=== PATIENT | female | born 2000 | race African-American/Black ===

== ENCOUNTER 2022-05-11 21:14 | Emergency (ER) | payer BC, SELFPAY ==
--- NOTE | ~2022-05-11 | CT_ITS ---
EXAMINATION: CT cervical spine wo con DATE: 05/11/2022 21:28 INDICATION: Head injury post 6 foot fall from a pull up bar. TECHNIQUE: Computed tomography (CT) of the cervical spine was performed without intravenous contrast. Automated exposure control and iterative reconstruction technique were employed. The dose-length pro duct was 530.74 mGy-cm. COMPARISON: None FINDINGS: Straightening of the normal cervical lordosis likely related to the presence of a cervical collar. No spondylolisthesis or facet subluxation. Vertebral body heights are normal. No fracture. Disc heights are normal. Uncovertebral joints are normal. 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 No centra l canal or neural foraminal stenosis. Bilateral small seventh cervical ribs. Cervical soft tissues ar e unremarkable. Visualized apices of lungs are clear. IMPRESSION: 1. No acute osseous abnormality. 2. 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 Reviewed, dictated and finalized at location A.
--- NOTE | ~2022-05-11 | CT_ITS ---
EXAMINATION: CT brain wo con DATE: 05/11/2022 21:28 INDICATION: Head injury post 6 foot fall from pull-up bar TECHNIQUE: Computed tomography (CT) of the head was performed without intravenous contrast. Sagittal and coronal reconstructions were performed. The mA was adjusted according to patient size. Iterative reconstruction technique was employed. The dose-length product was 605.33 mGy-cm. COMPARISON: None FINDINGS: No fracture. No acute intracranial hemorrhage, acute infarction or abnormal extra axial fluid collect ion. Ventricles are normal and symmetric. No mass/mass effect. The orbits, paranasal sinuses and mast oid air cells are normal. IMPRESSION: 1. Normal brain. No fracture or acute intracranial process. Reviewed, dictated and finalized at location A.
--- NOTE | 2022-05-11 21:14 | ED.HEATRA ---
HPI - Head Injury General Chief complaint: Head Injury <HAZEL Scruggs Last Filed: 05/12/22 00:54> Stated complaint: HEAD INJURY/ 6 FT FALL <HAZEL Scruggs Last Filed: 05/12/22 00:54> Source: patient and EMS <HAZEL Scruggs Last Filed: 05/12/22 00:54> Mode of arrival: EMS <HAZEL Scruggs Last Filed: 05/12/22 00:54> Limitations: no limitations <HAZEL Scruggs Last Filed: 05/12/22 00:54> History of Present Illness HPI Narrative: Patient is a 21-year-old female who presents the ED via EMS with report of head injury. Patient reports she was at [facility] when her teammates were doing pull-ups on a pull-up bar. She was lifted up to the pull-up bar and was attempting to perform a pull-up when she sort of jumped off the bar and hit her head against the wall that was in front of the bar. She then fell backwards onto the ground. Her teammates did not report loss of consciousness with the initial head injury, but reported that she had a syncopal episode after the fall. She was also complaining of dizziness, vision changes, nausea. EMS was then called. Patient reports having a slight headache currently, but denies any other pain. No further nausea, dizziness, vision changes. No back pain, neck pain, chest pain, difficulty breathing. <HAZEL Scruggs Last Filed: 05/12/22 00:54> Review of Systems Review of Systems: CONSTITUTIONAL: Denies fever, chills, or sweats. EYES: Denies visual changes. CARDIOVASCULAR: Denies chest pain. RESPIRATORY: Denies dyspnea. GASTROINTESTINAL: Denies abdominal pain, nausea, vomiting, or diarrhea. MUSCULOSKELETAL: Denies back pain, neck pain. NEUROLOGIC: Reports head injury, syncope, headache. Denies dizziness, lightheadedness, numbness, or weakness. <HAZEL Scruggs Last Filed: 05/12/22 00:54> All systems reviewed & are unremarkable except as noted in HPI and below <Shireen Umana PA-C - Last Filed: 05/12/22 00:54> [facility] Past Medical History Medical History: Medical History (Updated 05/12/22 @ 00:49 by Shireen Umana PA-C) No pertinent past medical history <Shireen Umana PA-C - Last Filed: 05/12/22 00:54> Surgical History Surgical History: Surgical History (Updated 05/12/22 @ 00:49 by Shireen Umana PA-C) No pertinent past surgical history <Shireen Umana PA-C - Last Filed: 05/12/22 00:54> Social History Social History: Social History (Updated 05/12/22 @ 00:49 by Shireen Umana PA-C) Smoking status: Never smoker <Shireen Umana PA-C - Last Filed: 05/12/22 00:54> Exam Narrative: GENERAL: Well appearing, morbidly obese, non-toxic, in no acute distress. HEAD: Normocephalic. Small tender contusion to R forehead. No wounds. EYES: PERRL/EOMI, conjunctivae clear bilaterally. No nystagmus. THROAT: Pharynx clear, no exudate. MMs moist. NECK: Supple. No adenopathy, no masses. C-collar in place. No midline spinal tenderness or appreciable paraspinal muscle tenderness. Full range of motion. RESPIRATORY: Airway patent, respirations nonlabored. Clear to auscultation bilaterally, no rales, rhonchi, wheezing. CARDIOVASCULAR: Regular rate and rhythm without murmurs, rubs, or gallops. Peripheral pulses 2+ and equal bilaterally. ABDOMINAL: Soft, nontender, nondistended, no hepatosplenomegaly. Normoactive BS. MUSCULOSKELETAL: Moves all extremities. Strength/ROM intact without gross deformities. SKIN: Warm, dry, normal color. No rashes. NEURO: A&O X3. Speech clear. No slurred speech. Cranial nerves II-XII grossly intact. Steady gait. No ataxic movements. Strength 5/5 in upper and lower extremities bilaterally. Equal manager hair strength. PSYCHIATRIC: Appropriate mood and affect. Normal interaction. 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
[2022-05-11 23:04] VITALS: BP 118/86; PULSE 85; RESP 20
== END 2022-05-11 23:10 | disposition home or self-care (01) ==
PROVIDERS: Emergency Provider Emergency Medicine
DX: S09.90XA Unspecified injury of head, initial encounter (principal); W22.09XA Striking against other stationary object, initial encounter
CPT/HCPCS: 70450; 72125; 99284

== ENCOUNTER 2022-05-17 21:53 | Emergency (ER) | payer BC, SELFPAY ==
[2022-05-17 22:57] VITALS: BP 131/74; PULSE 80; RESP 18; TEMP 36.4; O2SAT 100
--- NOTE | 2022-05-17 23:35 | PC.NURSE ---
Patient approached triage desk and informed this RN that she was leaving without being seen and would return tomorrow morning. Patient encouraged to stay for evaluation but declined.
== END 2022-05-17 23:35 | disposition left against medical advice (07) ==
LOC: ANHED 23:14
DX: M54.2 Cervicalgia (principal)
CPT/HCPCS: 99199